=== PATIENT | female | born 2000 | race Caucasian/White ===

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

== ENCOUNTER 2019-08-16 17:38 | Emergency (ER) | payer SELFPAY ==
[2019-08-16] MEDS ORDERED: IBUPROFEN 200 MG TAB PO ONE (18:52)
[2019-08-16] MEDS ORDERED: ACETAMINOPHEN IV 1000MG 1,000 MG in PREMIX BOTTLE 1 BOTTLE IVPB ONE (19:55)
[2019-08-16] MEDS ORDERED: SODIUM CHLORIDE 0.9% 1000ML 1,000 ML IVS ONE (19:55)
--- NOTE | 2019-08-16 19:55 | ED.PDOC ---
History of Present Illness - General Chief Complaint: Fever Stated Complaint: fever Time Seen by Provider: 08/16/19 19:54 - History of Present Illness Initial Comments: 19 yo otherwise healthy F who presents for fever with associated R flank pain, constant, dull, no radiation. Sx onset two days ago, worsening since that time. Denies recent travel, sick contacts, chills, cough, congestion, CP, SOB, abd pain, n/v/d, edema, urinary sx, vag sx. Allergies/Adverse Reactions: Allergies NO KNOWN ALLERGY Allergy (Verified 01/24/16 11:55) Home Medications: Ambulatory Orders Albuterol Inhaler [Ventolin Hfa Inhaler] 108 mcg IN QID PRN #1 inh 10/14/16 Amoxicillin [Amoxil] 1,000 mg PO BID #20 cap 10/14/16 Dextromet/Guaifenesin 600/30 T [Mucinex Dm 600/30MG] 1 tab PO BID #30 tab 10/14/16 Diphenhydramine HCl [Benadryl] 25 mg PO TID #30 cap 10/14/16 Cefdinir [Omnicef] 300 mg PO BID 10 Days #20 cap 08/16/19 Review of Systems - Review of Systems Constitutional: States: fever. Denies: chills EENTM: Denies: nose congestion, throat pain Respiratory: Denies: cough, short of breath Cardiology: Denies: chest pain, palpitations Gastrointestinal/Abdominal: Denies: abdominal pain, diarrhea, nausea, vomiting Genitourinary: States: other - R flank pain. Denies: discharge, dysuria, frequency, hematuria Musculoskeletal: Denies: back pain, neck pain Skin: Denies: change in color, rash Neurological: Denies: headache, numbness, weakness Past Medical History (General) - Patient Medical History Hx Seizures: No Hx Stroke: No Hx Asthma: Yes Hx Cardiac Disorders: No Hx Congestive Heart Failure: No Hx Diabetes: No Hx Gastroesophageal Reflux: Yes - with . Hx Renal Disease: No Hx Cancer: No Hx Hepatitis C: No - Vaccination History Hx Tetanus, Diphtheria Vaccination: No Hx Influenza Vaccination: No Hx Pneumococcal Vaccination: No - Social History Hx Tobacco Use: Yes Hx Chewing Tobacco Use: No Hx Alcohol Use: No Hx Substance Use: No Hx Substance Use Treatment: No Hx Depression: No Hx Physical Abuse: No Hx Emotional Abuse: No Hx Suspected Abuse: No - Female History Hx Last Menstrual Period: 01/20/14 Patient : No - unsure, has taken PG test- negative Expected Date of Delivery:: 11/28/14 Family Medical History - Family History Father Family History: No Known Living Status: Still Living Hx Family Asthma: Yes - family Mother Family History: Unknown Living Status: Physical Exam - Physical Exam General Appearance: Alert, No apparent distress, Well Developed, Well Nourished Eye Exam: bilateral normal Neck: full range of motion, supple Respiratory: chest non-tender, lungs clear, normal breath sounds, no respiratory distress, no accessory muscle use Cardiovascular/Chest: normal peripheral pulses, regular rate, rhythm, no edema, no gallop, no JVD, no murmur Peripheral Pulses: radial,right: 2+, radial,left: 2+ Gastrointestinal/Abdominal: normal bowel sounds, non tender, soft, no organomegaly, no pulsatile mass Back Exam: normal inspection, no vertebral tenderness, CVA tenderness (R) Extremity: normal range of motion, non-tender, normal inspection, no pedal edema Neurologic: no motor/sensory deficits, alert Skin Exam: normal color, warm/dry Progress - Progress Progress: 08/16/19 21:15 I have explained and reviewed all results with the pt. Given rocephin in ED and d/c home on Omnicef. I explained that emergent conditions may arise and to return to the ER for new, worsening, or any persistent conditions. I've explained the importance of f/u for recheck. All questions and concerns addressed at this time. Pt understands and agrees with plan. Pt well appearing, NAD, is stable for discharge. Lucia Benson MD Emergency Medicine Physician Billing Number [id number] - Results/Orders Results/Orders: 08/16/19 19:00 Urine Culture Stat Laboratory Results - last 24 hr 08/16/19 08/16/19 08/16/19 19:00 19:00 20:24 WBC 14.3 H RBC 4.20 Hgb 12.4 Hct 37.3 MCV 88.9 MCH 29.7 MCHC 33.4 RDW 14.3 Plt Count 197 MPV 8.2 Absolute Neuts (auto) 11.90 H Absolute Lymphs (auto) 1.10 Absolute Monos (auto) 1.30 H Absolute Eos (auto) 0.00 Absolute Basos (auto) 0.00 Neutrophils % 83.2 H Lymphocytes % 7.4 L Monocytes % 9.0 Eosinophils % 0.2 L Basophils % 0.2 Sodium Potassium Chloride Carbon Dioxide Anion Gap BUN Creatinine BUN/Creatinine Ratio Random Glucose Serum Osmolality Calcium Total Bilirubin AST ALT Alkaline Phosphatase Serum Total Protein Albumin Globulin Albumin/Globulin Ratio Urine Color Yellow Urine Appearance Cloudy Urine pH 6.5 Ur Specific [place]i 1.015 Urine Protein Trace Urine Glucose (UA) Negative Urine Ketones Negative Urine Blood Moderate H Urine Nitrite Negative Urine Bilirubin Negative Urine Urobilinogen >= 8.0 H Ur Leukocyte Esterase Moderate H Urine RBC 10-20 H Urine WBC 5-10 H Ur Epithelial Cells 5-10 Urine Bacteria 2+ H Urine HCG, Qual Negative 08/16/19 20:24 WBC RBC Hgb Hct MCV MCH MCHC RDW Plt Count MPV Absolute Neuts (auto) Absolute Lymphs (auto) Absolute Monos (auto) Absolute Eos (auto) Absolute Basos (auto) Neutrophils % Lymphocytes % Monocytes % Eosinophils % Basophils % Sodium 134 L Potassium 3.4 L Chloride 102 Carbon Dioxide 22 Anion Gap 13.4 BUN 10 Creatinine 0.61 BUN/Creatinine Ratio 16.4 Random Glucose 133 H Serum Osmolality 269.2 L Calcium 8.7 Total Bilirubin 0.4 AST 13 ALT 10 Alkaline Phosphatase 64 Serum Total Protein 7.0 Albumin 3.6 Globulin 3.4 Albumin/Globulin Ratio 1.1 Urine Color Urine Appearance Urine pH Ur Specific [place] Urine Protein Urine Glucose (UA) Urine Ketones Urine Blood Urine Nitrite Urine Bilirubin Urine Urobilinogen Ur Leukocyte Esterase Urine RBC Urine WBC Ur Epithelial Cells Urine Bacteria Urine HCG, Qual Departure - Departure Clinical Impression: Pyelonephritis Time of Disposition: 21:12 Disposition: Discharge to Home or Self Care Health Concerns: Condition: stable Departure Forms: ED Discharge - Pt. Copy, Patient Portal Self Enrollment Instructions: Kidney Infection (DC) Referrals: Eulogio Christensen MD [Primary Care Provider] - 1-5 Days Prescriptions: Cefdinir [Omnicef] 300 mg PO BID 10 Days #20 cap Home Medications: Ambulatory Orders Albuterol Inhaler [Ventolin Hfa Inhaler] 108 mcg IN QID PRN #1 inh 10/14/16 Amoxicillin [Amoxil] 1,000 mg PO BID #20 cap 10/14/16 Dextromet/Guaifenesin 600/30 T [Mucinex Dm 600/30MG] 1 tab PO BID #30 tab 10/14/16 Diphenhydramine HCl [Benadryl] 25 mg PO TID #30 cap 10/14/16 Cefdinir [Omnicef] 300 mg PO BID 10 Days #20 cap 08/16/19 Additional Instructions: Follow up: [facility] As needed, if symptoms worsen Your Primary Care Physician Make appointment, two days, for follow up
[2019-08-16] MEDS ORDERED: ACETAMINOPHEN IV 1000MG 100 ML ONE (20:24)
[2019-08-16] MEDS ORDERED: cefTRIAXone SODIUM 1 GM in SODIUM CHL 0.9% 50ML MIN-BAG+ 50 ML IVPB ONE (20:42)
[2019-08-16] MEDS ORDERED: SODIUM CHL 0.9% 50ML MIN-BAG+ 50 ML IVPB ONE (20:45)
[2019-08-16] MEDS ORDERED: cefTRIAXone SODIUM 1 GM VIAL ONE (20:45)
[2019-08-16 21:49] VITALS: BP 102/54; TEMP 97.9; O2SAT 97
== END 2019-08-16 21:49 | disposition home or self-care (01) ==
LOC: ER 17:38
DX: N12 Tubulo-interstitial nephritis, not specified as acute or chronic (principal); J45.909 Unspecified asthma, uncomplicated; Z87.891 Personal history of nicotine dependence; Z79.899 Other long term (current) drug therapy
CPT/HCPCS: 36415; 80053; 81001; 81025; 85025; 87086; J0696; J7030; J7050